=== PATIENT | female | born 1960 | race Caucasian/White ===

== ENCOUNTER → 2021-05-14 | Day surgery (SDC) | payer BC, OTHER ==
[2021-05-13 10:10] LABS: BASOPHILS # (AUTO) 0.1 (0.0-0.1); BASOPHILS % 0.6 % (0.0-1.0); EOSINOPHILS # (AUTO) 0.1 (0.0-0.4); EOSINOPHILS % 1.1 % (0.0-6.0); HEMATOCRIT 42.5 % (34.2-44.1); HEMOGLOBIN 13.6 g/dL (12.0-16.0); LYMPHOCYTES # (AUTO) 2.4 (1.0-3.2); LYMPHOCYTES % 26.6 % (18.0-39.1); MEAN CORPUSCULAR HEMOGLOBIN 28.6 pg (28-32); MEAN CORPUSCULAR VOLUME 89.5 fL (81-99); MONOCYTES # (AUTO) 0.5 (0.2-0.8); MONOCYTES % 5.8 % (4.4-11.3); NEUTROPHILS # (AUTO) 5.9 (2.1-6.9); NEUTROPHILS % 65.3 % (38.7-80.0); PLATELET COUNT 291 x10e3/uL (140-360); RED BLOOD COUNT 4.75 x10e6/uL (3.6-5.1); RED CELL DISTRIBUTION WIDTH 13.5 % (11.7-14.4)
[2021-05-13 10:27] LABS: ANION GAP 15.5 mmol/L (8-16); CALCIUM 9.4 mg/dL (8.4-10.2); CREATININE, SERUM 0.81 mg/dL (0.57-1.11); POTASSIUM 4.5 mmol/L (3.5-5.1)
[~2021-05-14] MED LIST: ATROPINE SULFATE 1 MG/ML VIAL ONE; BACITRACIN ZINC 15 GM OINT ONE; BUPIVACAINE HCL 0.5% INJ 30 ML VIAL INJ ONE; CENTRUM SILVER1 EAC3 PO; COQ-10100 MG PO; CYMBALTA60 MG PO; DEXAMETHASONE SOD PHOS INJ 4 MG/ML SDV ONE; FENTANYL CITRATE/PF 100MCG/2 ML INJ ONE; GABAPENTIN100 MG PO; KETOROLAC TROMETHAMINE 30 MG/ML VIAL ONE; LIDOCAINE HCL 2% LOCAL INJ 5 ML SDV VIAL INJ ONE; MIDAZOLAM HCL 2 MG/2 ML VIAL ONE; NEOSTIGMINE 1 MG/ML 10ML VIAL ONE; ONDANSETRON HCL INJ 2MG/ML 2ML 2 MG/ML VIAL ONE; PANTOPRAZOLE SO40 MG PO; POVIDONE IODINE 0.05% 0.05 % ML PO ONE; PROPOFOL IV EMULSION 10 MG/ML 20 ML VIAL ONE; ROCURONIUM BROMIDE 10 MG/ML 5ML VIAL IV ONE; SEVOFLURANE INHAL SOLN 250 ML PEN BTL ONE; SIMVASTATIN PO; TOPROL XL25 MG PO; VITAMIN D400 UNIT PO; WELLBUTRIN75 MG PO
[2021-05-14 11:00] VITALS: BP 141/82
== END | disposition home or self-care (01) ==
LOC: OR 06:48
PROVIDERS: ATTEND Podiatrist Foot Surgery
DX: M66.871 Spontaneous rupture of other tendons, right ankle and foot (principal); M67.01 Short Achilles tendon (acquired), right ankle; M77.31 Calcaneal spur, right foot; M77.8 Other enthesopathies, not elsewhere classified; M19.90 Unspecified osteoarthritis, unspecified site; Z88.6 Allergy status to analgesic agent; Z01.810 Encounter for preprocedural cardiovascular examination; Z01.812 Encounter for preprocedural laboratory examination; Z01.818 Encounter for other preprocedural examination; Z20.822 Contact with and (suspected) exposure to COVID-19
CPT/HCPCS: 27650; 27687; 28118; 36415; 71046; 80048; 85025; 93005; C1762; J0461; J0690; J1100; J1885; J2001; J2250; J2405; J2704; J2710; J3010; U0002; 76000